=== PATIENT | female | born 1990 | race Hispanic/Latino ===

== ENCOUNTER 2017-11-04 14:10 | Emergency (ER) | payer SELFPAY | END 2017-11-04 15:18 | disposition home or self-care (01) | LOC: ERS 14:10 | DX: Z00.00 Encounter for general adult medical examination without abnormal findings (principal); J45.909 Unspecified asthma, uncomplicated; F41.9 Anxiety disorder, unspecified | CPT/HCPCS: 99283 ==

== ENCOUNTER 2018-10-19 18:58 | Day surgery (SDC) | payer OTHER ==
[2018-10-19 19:53] VITALS: BP 107/60; TEMP 98.8; BMI 34.2
[2018-10-19 20:11] LABS: Bacteria/HPF None Seen HPF (None Seen); Bilirubin Negative (Negative); Blood, Urine Negative (Negative); Clarity Turbid (Clear); Glucose, Urine (Dipstick) Normal (Negative); Leukocyte Negative Leu/uL (Negative); Nitrite Negative (Negative); Protein, Urine (Dipstick) Negative (Neg-Trace); RBC/HPF 0-3 HPF (0-3); Squamous Epithelial 0-3 HPF (0-3); Urobilinogen Normal mg/dL (Less than 2); WBC/HPF 0-3 HPF (0-3)
--- NOTE | 2018-10-19 22:11 | PDOC.LDHP ---
Labor and Delivery H&P Chief complaint: abdominal pain HPI: 28 y/o at 26w3d, patient of Dr. Jerome, presents with right inguinal pain after standing up quickly. Denies VB, LOF, ctx, or decreased FM. Pain now resolved. Also complains of constipation - only having BM q week. ROS neg for HEENT, cv, pulm, gi, gu, neuro, psych, skin, musculoskeletal or constitutional symptoms other than mentioned above. OB History Details: 1 prior term 1 SAB Current complications: none Past Medical History: HSV Current medications: pre-efrain vitamins Previous surgical history: cholecystectomy Allergies/Adverse Reactions: Allergies Allergy/AdvReac Type Severity Reaction Status Date / Time No Known Allergies Allergy Verified 08/22/14 11:03 Social history: none - Physical Exam Vital signs reviewed and normal: yes General: NAD, resting Lungs: nonlabored breathing Abdomen: gravid Extremeties: no edema FHT: category 1 (150s, mod variability, + accels, no decels) [place] contractions every: none - Assessment 28 y/o at 26w3d with musculoskeletal discomforts of , now resolved. status reassuring with reactive NST. Discussed miralax for constipation. - Plan -: D/c home with precautions. Advised to keep all appointments.
== END 2018-10-19 20:45 | disposition home or self-care (01) ==
LOC: L&D/OP 18:58
PROVIDERS: ATTEND Obstetrics & Gynecology
DX: O99.89 Other specified diseases and conditions complicating pregnancy, childbirth and the puerperium (principal); R10.31 Right lower quadrant pain; Z3A.26 26 weeks gestation of pregnancy
CPT/HCPCS: 81001; 99283

== ENCOUNTER 2018-12-28 19:22 | Emergency (ER) | payer OTHER | END 2018-12-28 20:02 | disposition home or self-care (01) | LOC: ERS 19:22 | DX: Z04.1 Encounter for examination and observation following transport accident (principal); Z3A.36 36 weeks gestation of pregnancy ==

== ENCOUNTER 2018-12-28 20:14 | Day surgery (SDC) | payer OTHER ==
[2018-12-28 21:42] VITALS: BP 108/70; TEMP 98.9; BMI 35.7
[2018-12-28] MEDS ORDERED: hydrALAZINE 20 MG/ML VIAL SLOW IVP PRN (21:50)
[2018-12-28] MEDS ORDERED: Lactated Ringer's 1,000 ML IV SCH ×2 (22:00→23:00)
[2018-12-28 22:20] LABS: #Eosinphils 0.1 thou/uL (0.0-0.7); #Lymphocytes 1.5 thou/uL (1.20-3.40); #Monocytes 0.5 thou/uL (0.11-0.59); #Neutrophils 9.2 thou/uL (1.40-6.50); %Basophils 0.1 % (0.0-1.0); %Eosinophils 0.6 % (0.0-10.0); %Lymphocytes 13.3 % (21.0-51.0); %Monocytes 4.6 % (0.0-10.0); %Neutrophils 81.4 % (42.0-75.0); Hemoglobin 13.3 g/dL (12.0-16.0); Mean Corpuscular HGB CONC 35.6 g/dL (32.0-36.0); Mean Corpuscular Hemoglobin 30.1 pg (27.0-31.0); Mean Corpuscular Volume 84.5 fL (78.0-98.0); Mean Platelet Volume 7.5 fL (7.4-10.4); Platelet Count 289 thou/uL (130-400); RBC Distribution Width 11.9 % (11.5-14.5); Red Blood Cell (RBC) Count 4.41 mill/uL (4.20-5.40); White Blood Cell (WBC) Count 11.3 thou/uL (4.8-10.8)
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
--- NOTE | 2018-12-29 07:31 | PDOC.EVN ---
Event Note - Event Note Event Note: No c/o, no bleeding or LOF. UCs have subsided. FHTs stable. USG- no evidence of abruptio. KB returned negative. DC home with precautions, has appt. with Dr. Delcid at 3pm today.
== END 2018-12-29 07:40 | disposition home or self-care (01) ==
LOC: L&D/OP 20:14
PROVIDERS: ATTEND Obstetrics & Gynecology
DX: Z04.1 Encounter for examination and observation following transport accident (principal); O98.513 Other viral diseases complicating pregnancy, third trimester; B00.9 Herpesviral infection, unspecified; Z3A.36 36 weeks gestation of pregnancy
CPT/HCPCS: 36415; 76815; 85025; 85460; 86850; 86900; 86901; 96360; 96361; 99283

== ENCOUNTER 2019-01-05 08:02 | Day surgery (SDC) | payer OTHER ==
[2019-01-05 08:27] VITALS: BMI 36.0
[2019-01-05] MEDS ORDERED: FLU VACC QS2019-20(6MOS UP)/PF 60 MCG/0.5 ML SYRINGE IM ONE (08:45)
[2019-01-05] MEDS ORDERED: hydrALAZINE 20 MG/ML VIAL SLOW IVP PRN (12:48)
--- NOTE | 2019-01-05 14:04 | PRG ---
DATE OF SERVICE: 01/05/2019 PRIMARY DIRECTOR OF CATERING: Carly Jerome DO CHIEF COMPLAINT: Back pain. HISTORY OF PRESENT ILLNESS: The patient is a 28-year-old G3, P1 female with an intrauterine at 37 weeks and 4 days, presenting to Labor and Delivery with a 1-2 day history of low back pain. She said that she had some pain on Thursday in the similar region that resolved on its own by the end of the day and began back this morning around 0600 hours. She said the pain was worse with activity and movement and standing, getting out of bed and out of the car. She has not taken any home pain medications and came to be evaluated to see if she was in labor. The patient denies any recent illness, fever, fall, headache, chest pain, shortness of breath, nausea, vomiting, diarrhea, constipation, hip problems, knee problems, muscle weakness, vaginal bleeding or leakage of fluid, urinary urgency or frequency. PAST MEDICAL HISTORY: Genital herpes. PAST SURGICAL HISTORY: She has had a cholecystectomy. ALLERGIES: NO KNOWN DRUG ALLERGIES. MEDICATIONS: vitamins and valacyclovir 1 g daily. SOCIAL HISTORY: Denies drug, alcohol or tobacco use. OBSTETRIC LABS: Blood type is A positive. Antibody screen is negative. RPR is nonreactive. HIV is nonreactive. She is rubella immune. Positive for chlamydia with a negative test of care in June 2018. Third trimester VDRL is negative. REVIEW OF SYSTEMS: Per HPI. PHYSICAL EXAMINATION: VITAL SIGNS: Blood pressure 120/73, heart rate of 85, saturating 99% on room air. Respiration rate 16, temperature 98.4. GENERAL: She appears to be in no acute distress. She is alert and oriented, cooperative, and pleasant to interact with. HEAD: Normocephalic, atraumatic. LUNGS: Clear to auscultation bilaterally. HEART: Regular rate and rhythm. ABDOMEN: Gravid, soft, nontender. EXTREMITIES: Nontender with minimal edema. She has distinct right-sided SI joint tenderness to palpation. Point tenderness with no tenderness in her upper gluteal region or lumbar. heart tracing shows the fetus with a baseline in the 140s with moderate long-term variability, positive 15 x 15 accelerations, no decelerations. Tocometer showing irritability, not felt by the patient. ASSESSMENT AND PLAN: The patient is a 28-year-old female with musculoskeletal pains of concentrated in her sacroiliac joint on the right side. The patient has been counseled to moist heat and Tylenol 1 g 3 times a day and to refrain from heavy activities. The patient has an appointment this afternoon with her primary OB, Dr. Jerome that we have encouraged that she keep. Fetus has a reactive NST and category 1 tracing. The patient has been given term labor precautions. Job ID: [id number]
== END 2019-01-05 09:37 | disposition home or self-care (01) ==
LOC: L&D/OP 08:02
PROVIDERS: ATTEND Obstetrics & Gynecology
DX: O99.89 Other specified diseases and conditions complicating pregnancy, childbirth and the puerperium (principal); M54.5 Low back pain; O98.313 Other infections with a predominantly sexual mode of transmission complicating pregnancy, third trimester; A60.00 Herpesviral infection of urogenital system, unspecified; Z3A.37 37 weeks gestation of pregnancy
CPT/HCPCS: 99282

== ENCOUNTER 2019-01-08 20:37 | Emergency (ER) | payer OTHER | END 2019-01-08 21:15 | disposition home or self-care (01) | LOC: ERS 20:37 | DX: O98.513 Other viral diseases complicating pregnancy, third trimester (principal); B07.0 Plantar wart; J45.909 Unspecified asthma, uncomplicated; O99.513 Diseases of the respiratory system complicating pregnancy, third trimester; Z3A.38 38 weeks gestation of pregnancy | CPT/HCPCS: 99282 ==

== ENCOUNTER 2019-01-18 19:30 | Inpatient (IN) | payer OTHER ==
[~2019-01-18 19:30] MED LIST: Bupivacaine/Epinephrine 0.25% 30 ML VIAL ONE
--- NOTE | 2019-01-18 20:39 | PDOC.LDHP ---
Labor and Delivery H&P Chief complaint: scheduled induction HPI: 28 yo @ 39w2d by LMP c/w 12 week CRL who presents for IOL. Antepartum course complicated by obesity, + CT (treated, repeat SOILA pending) and Recurrent HSV. Pt denies any current HSV sx and had negative exam last week. Current gestational age (weeks): 39 Due date: 01/23/19 Dating criteria: last menstrual period Grav: 3 Para: 1 OB History Details: 1 term 1 SAB Current complications: none Abnormal US findings: No Past Medical History: Asthma Current medications: pre- vitamins Previous surgical history: cholecystectomy Allergies/Adverse Reactions: Allergies Allergy/AdvReac Type Severity Reaction Status Date / Time No Known Allergies Allergy Verified 01/05/19 08:26 Social history: none - Physical Exam Vital signs reviewed and normal: yes General: NAD Heart: RRR Lungs: nonlabored breathing Abdomen: gravid Extremeties: no edema FHT: category 1 (130s, mod sheri, +accels, no decels) [place] contractions every: q2-3 min - Vaginal Exam cm dilated: 3 (Arom- blood tinged ) Effacement: 50% Station: -2 - OB Labs Blood type: A RH: positive Antibody Screen: negative HIV: negative RPR: negative HEPSAg: negative 1 hour GCT: negative GBS: negative Rubella: immune Additional Labs: Carrier screening and SS wnl CT+ 12/2018 (SOILA pending) - Assessment 39w2d IUP EIOL HSV, on suppression (no symptoms or lesions) + CT, SOILA pending Obesity - Plan Plan: admit to L&D, cervical ripening (s/p cytotec and AROM Will start pitocin) , informed consent obtained, anesthesia consult for pain management
[2019-01-19 01:10] VITALS: BMI 37.9
[2019-01-19] MEDS ORDERED: Carboprost 250 MCG/ML AMP IM PRN (01:49)
[2019-01-19] MEDS ORDERED: Acetaminophen 500 MG TAB PO PRN (01:49)
[2019-01-19] MEDS ORDERED: Butorphanol Tartrate 1 MG/ML VIAL SLOW IVP PRN (01:49)
[2019-01-19] MEDS ORDERED: HYDROcodone/Acetaminophen 5/325 mg Tablet PO PRN ×2 (01:49→22:00)
[2019-01-19] MEDS ORDERED: Ibuprofen 800 MG TAB PO PRN (01:49)
[2019-01-19] MEDS ORDERED: Misoprostol 200 MCG TAB PR PRN (01:49)
[2019-01-19] MEDS ORDERED: NS / Oxytocin 40 units/1000ml 1,000 ML IV PRN (01:49)
[2019-01-19] MEDS ORDERED: Ondansetron PF 4 MG/2 ML Vial IVP PRN ×2 (01:49→19:07)
[2019-01-19] MEDS ORDERED: Promethazine HCl 25 MG/ML VIAL IM PRN ×2 (01:49→19:07)
[2019-01-19] MEDS ORDERED: Diphenoxylate HCl/Atropine Tablet PO PRN (01:49)
[2019-01-19] MEDS ORDERED: Lidocaine 1% (PF) 30 ML VIAL SC PRN (01:49)
[2019-01-19] MEDS ORDERED: Methylergonovine 0.2 MG/ML VIAL IM PRN (01:49)
[2019-01-19] MEDS ORDERED: hydrALAZINE 20 MG/ML VIAL SLOW IVP PRN ×2 (01:49→22:00)
[2019-01-19 02:03] LABS: Hemoglobin 12.7 g/dL (12.0-16.0); Mean Corpuscular HGB CONC 36.4 g/dL (32.0-36.0); Mean Corpuscular Hemoglobin 30.8 pg (27.0-31.0); Mean Corpuscular Volume 84.7 fL (78.0-98.0); Mean Platelet Volume 7.6 fL (7.4-10.4); Platelet Count 285 thou/uL (130-400); RBC Distribution Width 12.1 % (11.5-14.5); Red Blood Cell (RBC) Count 4.13 mill/uL (4.20-5.40); White Blood Cell (WBC) Count 8.1 thou/uL (4.8-10.8)
[2019-01-19] MEDS: Lactated Ringer's 1,000 ML IV SCH ×3 (02:18→18:06)
[2019-01-19] MEDS: Misoprostol 100 MCG TAB VAG SCH ×3 (02:18→23:06)
[2019-01-19 02:44] LABS: HBSAg Index 0.11 S/CO (0-0.99); HIV (1/2) Antibody/Antigen Non-Reactive (NonReactive); HIV 1/2 INDEX 0.06 S/CO (<1.00); Hep B Surf Ag Non-Reactive S/CO (NonReactive)
[2019-01-19 05:55] LABS: Syphilis Antibody Nonreactive (Nonreactive); Syphilis Antibody Index 0.02 S/CO (<1.00 Non-Reactive)
[2019-01-19] MEDS ORDERED: NS w/ Oxytocin 10 units 500 ML IV SCH (06:00)
--- NOTE | 2019-01-19 12:19 | PDOC.LDPN ---
Labor & Delivery Progress Note - Subjective Subjective: other (Feels some ctx. ) - Objective Vital signs reviewed and normal: yes Uterine fundus: non tender SVE: 5 Effacement: 50% Station: -2 FHT: category 1 (130s, mod sheri, +accels, no decels ) [place] contractions every: q2-4 min when assessing IUPC placed: yes - Assessment (1) 39 weeks gestation of Code(s): Z3A.39 - 39 WEEKS GESTATION OF Current Visit: Yes Status : Acute (2) Elective induction of labor planned Code(s): [id number] - Current Visit: Yes Status: Acute Plan: continue plan of care
[2019-01-19] MEDS ORDERED: Lidocaine 1% (PF) 30 ML VIAL ONE (14:26)
[2019-01-19] MEDS ORDERED: NS / Oxytocin 40 units/1000ml 1,000 ML ONE (14:26)
--- NOTE | 2019-01-19 17:08 | PDOC.LDPN ---
Labor & Delivery Progress Note - Subjective Subjective: painful contractions - Objective Vital signs reviewed and normal: yes General: NAD Uterine fundus: non tender Dilation: 6 Effacement: 90% Station: 0 FHT: category 1 (130s, mod sheri, +accels, no decels ) - Assessment (1) 39 weeks gestation of Code(s): Z3A.39 - 39 WEEKS GESTATION OF Current Visit: Yes Status : Acute (2) Elective induction of labor planned Code(s): [id number] - Current Visit: Yes Status: Acute -: Protracted labor course. Fetus in OP position. Pt desires epidural. Will perform position changes after comfortable to assist with protracted course.
[2019-01-19] MEDS ORDERED: Fentanyl 4 mcg/Bup 0.1% Cadd 100 ML ONE (17:09)
[2019-01-19] MEDS ORDERED: Fentanyl 100 MCG/2 ML VIAL ONE (18:15)
[2019-01-19] MEDS ORDERED: diphenhydrAMINE 50 MG/ML VIAL IVP PRN (19:07)
[2019-01-19] MEDS ORDERED: Acetaminophen 325 MG TAB PO PRN (19:07)
[2019-01-19] MEDS ORDERED: ePHEDrine/0.9% NaCl/PF SYRINGE 50 mg/10 ml SLOW IVP PRN (19:07)
[2019-01-19] MEDS ORDERED: Lactated Ringer's 500 ML IV PRN (19:07)
[2019-01-19] MEDS ORDERED: Fentanyl 100 MCG/2 ML VIAL EPIDURAL PRN (19:07)
[2019-01-19] MEDS ORDERED: Naloxone HCl 0.4 mg/ml Vial IVP PRN ×2 (19:07)
[2019-01-19] MEDS ORDERED: Fentanyl 4 mcg/Bupivacaine 0.1% Cassette 100 ML EPIDURAL SCH (19:15)
[2019-01-19] MEDS ORDERED: Communication Order-Pharmacy FS SCH (19:15)
--- NOTE | 2019-01-19 19:33 | PDOC.OPDEL ---
OB Operative/Delivery Note Delivery Dr/Surgeon: Carly Jerome DO Pre-Delivery Diagnosis: elective induction Procedure/Post Delivery Dx: spontaneous vaginal delivery Weeks gestation: 39 Anesthesia: epidural - Findings A Sex: male - 1 min: 7 - 5 min: 9 - Additional Findings/Plan Placenta delivered: spontaneous Repaired Obstetrical Laceration: none Estimated blood loss: 150 cc Compilations/Other Findings: RANJITH position Shoulder dystocia for approximately 30-40 seconds, relieved with Dona, suprapubic pressure and [place] maneuver. placed in warmer and NICU team called. Cord gases and blood obtained. Infant moving both upper extremities after . Post delivery plan: routine recovery
[2019-01-19 19:35] LABS: Actual Bicarbonate (HCO3a) 20.1 mEq/L (22-28); Base Excess (BEa) -6.3 mEq/L (-2.0 to +3.0)
[2019-01-19 19:38] LABS: Actual Bicarbonate (HCO3v) 20 mEq/L (22-28); Base Excess -6.2 mEq/L (-2.0 to +3.0); pH (Cord, venous) 7.29 (7.32-7.43)
[2019-01-19] MEDS ORDERED: diphenhydrAMINE 25 MG CAP PO PRN (22:00)
[2019-01-19] MEDS ORDERED: Bisacodyl 10 MG SUPP PR PRN (22:00)
[2019-01-19] MEDS ORDERED: NS / Oxytocin 40 units/1000ml 1,000 ML IV SCH (22:00)
[2019-01-19] MEDS ORDERED: Milk Of Magnesia 30 ML UDCUP PO PRN (22:00)
[2019-01-19] MEDS ORDERED: Benzocaine-Menthol 82.5 ML CAN TOP PRN (22:00)
[2019-01-19] MEDS ORDERED: Preparation H Ointment 28 GM TUBE PR PRN (22:00)
[2019-01-19] MEDS ORDERED: Lanolin Ointment 7 GM TUBE TOP PRN (22:00)
[2019-01-19] MEDS: Ibuprofen 800 MG TAB PO SCH (22:57)
[2019-01-20] MEDS: Misoprostol 100 MCG TAB VAG SCH ×6 (02:14→20:41)
[2019-01-20 04:22] LABS: Hemoglobin 11.4 g/dL (12.0-16.0); Mean Corpuscular HGB CONC 35.7 g/dL (32.0-36.0); Mean Corpuscular Hemoglobin 30.1 pg (27.0-31.0); Mean Corpuscular Volume 84.3 fL (78.0-98.0); Mean Platelet Volume 7.9 fL (7.4-10.4); Platelet Count 256 thou/uL (130-400); RBC Distribution Width 12.1 % (11.5-14.5); White Blood Cell (WBC) Count 12.7 thou/uL (4.8-10.8)
[2019-01-20] MEDS: Ibuprofen 800 MG TAB PO SCH ×3 (06:04→23:19)
--- NOTE | 2019-01-20 08:26 | PDOC.PP ---
Post Progress Note Post Day #: 1 Subjective: No concerns. Minimal pain and lochia. Desires to breast feed, but having difficulty getting infant to latch. PO intake tolerated: yes Flatus: yes Ambulation: yes Vital Signs (12 hours) Temp Pulse Resp BP Pulse Ox 01/20/19 08:17 98.0 F 93 20 121/58 L 95 01/20/19 04:00 98.1 F 93 18 121/62 95 01/19/19 23:00 99.1 F 106 H 16 111/57 L 95 Weight Weight 242 lb - Physical Examination General: NAD Cardiovascular: RRR Respiratory: non-labored breathing Abdominal: no distention, appropriately TTP Fundus firm & at: below umbilicus Extremities: negative homans (B) Neurological: no gross focal deficits Psychiatric: A&Ox3, normal affect Result Diagrams: 01/20/19 03:48 Additional Labs: Post Labs Blood Type A POSITIVE 01/19/19 01:51 Hep Bs Antigen Non-Reactive S/CO (NonReactive) 01/19/19 01:51 (1) 39 weeks gestation of Code(s): Z3A.39 - 39 WEEKS GESTATION OF Status: Resolved (2) Elective induction of labor planned Code(s): CED2161 - Status: Resolved (3) Vaginal delivery Code(s): O80 - ENCOUNTER FOR FULL-TERM UNCOMPLICATED DELIVERY Status: Acute (4) Shoulder dystocia, delivered Code(s): O66.0 - OBSTRUCTED LABOR DUE TO SHOULDER DYSTOCIA Status: Acute - Assessment/Plan PPD1 VSSAF Continue PP care. LT today. Plan for d/c @ 24 hours if ready for d/c
[2019-01-20] MEDS: Prenatal Vitamin 1 TAB PO SCH ×2 (09:54→10:30)
[2019-01-20] MEDS: Docusate Calcium (SURFAK) 240 MG CAP PO SCH ×2 (09:55→23:19)
[2019-01-20] MEDS: Ferrous Sulfate 325 MG TAB PO SCH ×2 (10:28→18:32)
[2019-01-21] MEDS: Ibuprofen 800 MG TAB PO SCH ×3 (06:24→13:36)
--- NOTE | 2019-01-21 08:27 | PDOC.PP ---
Post Progress Note Post Day #: 1 Subjective: No concerns. Breast feeding. receiving phototherapy until 3 pm today. Minimal pain and lochia. PO intake tolerated: yes Flatus: yes Ambulation: yes Weight Weight 242 lb - Physical Examination General: NAD Cardiovascular: RRR Respiratory: non-labored breathing Abdominal: no distention, appropriately TTP Fundus firm & at: below umbilicus Extremities: negative homans (B) Neurological: no gross focal deficits Psychiatric: A&Ox3, normal affect Result Diagrams: 01/20/19 03:48 Additional Labs: Post Labs Blood Type A POSITIVE 01/19/19 01:51 Hep Bs Antigen Non-Reactive S/CO (NonReactive) 01/19/19 01:51 (1) 39 weeks gestation of Code(s): Z3A.39 - 39 WEEKS GESTATION OF Status: Resolved (2) Elective induction of labor planned Code(s): [id number] - Status: Resolved (3) Vaginal delivery Code(s): O80 - ENCOUNTER FOR FULL-TERM UNCOMPLICATED DELIVERY Status: Acute (4) Shoulder dystocia, delivered Code(s): O66.0 - OBSTRUCTED LABOR DUE TO SHOULDER DYSTOCIA Status: Acute - Assessment/Plan PPD2 VSS Plan for d/c this PM after infant completes phototherapy
[2019-01-21 08:33] VITALS: BP 115/75; TEMP 98
[2019-01-21] MEDS: Prenatal Vitamin 1 TAB PO SCH (09:04)
[2019-01-21] MEDS: Ferrous Sulfate 325 MG TAB PO SCH ×2 (09:05→17:41)
[2019-01-21] MEDS: Misoprostol 100 MCG TAB VAG SCH ×4 (09:05→17:41)
[2019-01-21] MEDS: Docusate Calcium (SURFAK) 240 MG CAP PO SCH (09:05)
== END 2019-01-21 18:50 | disposition home or self-care (01) | DRG 806 ==
LOC: L&D 23:43 → 3SW 01-19 23:11
PROVIDERS: ADMIT Obstetrics & Gynecology; ATTEND Obstetrics & Gynecology
PROC: 10E0XZZ Delivery of Products of Conception, External Approach (ICD-10-PCS; principal; 2019-01-18)
PROC: 10907ZC Drainage of Amniotic Fluid, Therapeutic from Products of Conception, Via Natural or Artificial Opening (ICD-10-PCS; 2019-01-18)
PROC: 3E0P7VZ Introduction of Hormone into Female Reproductive, Via Natural or Artificial Opening (ICD-10-PCS; 2019-01-18)
PROC: 3E033VJ Introduction of Other Hormone into Peripheral Vein, Percutaneous Approach (ICD-10-PCS; 2019-01-18)
DX: O99.214 Obesity complicating childbirth (principal); O98.52 Other viral diseases complicating childbirth; Z37.0 Single live birth; Z3A.39 39 weeks gestation of pregnancy; Z90.49 Acquired absence of other specified parts of digestive tract; E66.9 Obesity, unspecified; B00.9 Herpesviral infection, unspecified; J45.909 Unspecified asthma, uncomplicated; O99.513 Diseases of the respiratory system complicating pregnancy, third trimester; O66.0 Obstructed labor due to shoulder dystocia
CPT/HCPCS: 36415; 51702; 82805; 85027; 86780; 86850; 86900; 86901; 87340; 87389; J0595; J2001; J2550; J2590; J3010